=== PATIENT | male | born 1985 | race Caucasian/White ===

== ENCOUNTER 2019-08-07 23:53 | Emergency (ER) | payer BC, OTHER ==
--- NOTE | 2019-08-08 00:49 | EDM.PDOC ---
ED HPI GENERAL MEDICAL PROBLEM - General Chief Complaint: ENT Problem Stated Complaint: SORE THROAT Time Seen by Provider: 08/08/19 00:44 Source of Information: Reports: Patient History Limitations: Reports: No Limitations - History of Present Illness INITIAL COMMENTS - FREE TEXT/NARRATIVE: 33-year-old male presents the emergency room with chief complaint of sore throat for the past 2 days. Patient's family presents the emergency room all having sore throats. Patient is convinced he has strep Onset: Today Duration: Hour(s):, Getting Worse Location: Reports: Other (throat) Quality: Reports: Ache Severity: Mild Improves with: Reports: None Worsens with: Reports: None Associated Symptoms: Reports: No Other Symptoms throat Pain Score (Numeric/FACES): 3 - Related Data Allergies Allergy/AdvReac Type Severity Reaction Status Date / Time No Known Allergies Allergy Verified 08/08/19 00:21 Home Meds: Home Meds Insulin Glarg,Human.Rec.Analog [Lantus] 10 units SQ DAILY 08/08/19 [History] metFORMIN HCl [Metformin HCl] 1,000 mg PO BID 08/08/19 [History] Past Medical History Endocrine/Metabolic History: Reports: Diabetes, Type II, Obesity/BMI 30+ Social & Family History - Family History Family Medical History: Noncontributory - Tobacco Use Smoking Status *Q: Never Smoker - Recreational Drug Use Recreational Drug Use: No ED ROS ENT - Review of Systems Review Of Systems: See Below Constitutional: Reports: Fever HEENT: Reports: Throat Pain Respiratory: Reports: No Symptoms Cardiovascular: Reports: No Symptoms Endocrine: Reports: No Symptoms GI/Abdominal: Reports: No Symptoms : Reports: No Symptoms Musculoskeletal: Reports: No Symptoms Skin: Reports: No Symptoms Neurological: Reports: No Symptoms Psychiatric: Reports: No Symptoms Hematologic/Lymphatic: Reports: No Symptoms Immunologic: Reports: No Symptoms ED EXAM, ENT - Physical Exam Exam: See Below Text/Narrative:: Exam patient is awake alert and oriented. Patient has swelling to the tonsillar cry no evidence of exudates. Patient is not septic Exam Limited By: No Limitations General Appearance: Alert, WD/WN, No Apparent Distress Eye Exam: Bilateral Eye: PERRL, Proptosis Ears: Normal External Exam, Normal Canal, Hearing Grossly Normal, Normal TMs Nose: Normal Inspection, Normal Mucousa Mouth/Throat: Normal Inspection, Normal Gums, Normal Lips, Normal Oropharynx Head: Atraumatic, Normocephalic Neck: Normal Inspection, Supple, Non-Tender Respiratory/Chest: No Respiratory Distress, Lungs Clear, Normal Breath Sounds, No Accessory Muscle Use, Chest Non-Tender Cardiovascular: Normal Peripheral Pulses, Regular Rate, Rhythm, No Edema, No JVD , No Murmur Neurological: Alert, Oriented, CN II-XII Intact Psychiatric: Normal Affect, Normal Mood Skin: Warm, Dry, Intact Lymphatic: No Adenopathy Course - Vital Signs Last Recorded V/S: Last Vital Signs Temp 97 F 08/08/19 00:15 Pulse 85 08/08/19 00:15 Resp 18 08/08/19 00:15 BP 118/73 08/08/19 00:15 Pulse Ox 94 L 08/08/19 00:15 - Orders/Labs/Meds Orders: Active Orders 24 hr Category Date Time Status CULTURE STREP A CONFIRMATION [] Stat Lab 08/08/19 00:20 Results STREP SCRN A RAPID W CULT CONF [RM] Stat Lab 08/08/19 00:20 Results Departure - Departure Time of Disposition: 01:41 Disposition: Home, Self-Care 01 Condition: Good Clinical Impression: Viral syndrome - Discharge Information Instructions: Viral Illness, Adult Referrals: [facility] [Outside] [facility] [Outside] PCP,None [Primary Care Provider] - Forms: ED Department Discharge Care Plan Goals: The following information is given to patients seen in the emergency department who are being discharged to home. This information is to outline your options for follow-up care. We provide all patients seen in our emergency department with a follow-up referral. The need for follow-up, as well as the timing and circumstances, are variable depending upon the specifics of your emergency department visit. If you don't have a primary care physician on staff, we will provide you with a referral. We always advise you to contact your personal physician following an emergency department visit to inform them of the circumstance of the visit and for follow-up with them and/or the need for any referrals to a consulting specialist. The emergency department will also refer you to a specialist when appropriate. This referral assures that you have the opportunity for followup care with a specialist. All of these measure are taken in an effort to provide you with optimal care, which includes your followup. Under all circumstances we always encourage you to contact your private physician who remains a resource for coordinating your care. When calling for followup care, please make the office aware that this follow-up is from your recent emergency room visit. If for any reason you are refused follow-up, please contact the [facility] emergency department at and ask to speak to the emergency department charge nurse. Sepsis Event Note - Evaluation Sepsis Screening Result: No Definite Risk - Focused Exam Vital Signs: Vital Signs Temp Pulse Resp BP Pulse Ox 08/08/19 00:15 97 F 85 18 118/73 94 L Date Exam was Performed: 08/08/19 Time Exam was Performed: 01:40 - My Orders Last 24 Hours: My Active Orders 08/08/19 00:20 CULTURE STREP A CONFIRMATION [RM] Stat STREP SCRN A RAPID W CULT CONF [RM] Stat - Assessment/Plan Last 24 Hours: My Active Orders 08/08/19 00:20 CULTURE STREP A CONFIRMATION [RM] Stat STREP SCRN A RAPID W CULT CONF [RM] Stat
== END 2019-08-08 01:55 | disposition home or self-care (01) ==
LOC: MW.ED 23:53
DX: B34.9 Viral infection, unspecified (principal); E11.9 Type 2 diabetes mellitus without complications; E66.9 Obesity, unspecified; Z79.4 Long term (current) use of insulin; Z68.39 Body mass index [BMI] 39.0-39.9, adult
CPT/HCPCS: 87081; 87804; 87880-QW; 99282; 99283

== ENCOUNTER 2021-06-27 17:23 | Emergency (ER) | payer OTHER ==
[2021-06-27] MEDS ORDERED: Ondansetron 4 MG/2 ML SDV IVPUSH ONE (18:01)
[2021-06-27] MEDS ORDERED: Ketorolac 30 MG/ML SDV IVPUSH ONE (18:01)
[2021-06-27] MEDS ORDERED: Sodium Chloride 0.9% 1,000 ML IV ONE (18:02)
[2021-06-27] MEDS ORDERED: Morphine 4 MG/ML VIAL IVPUSH ONE (18:02)
[2021-06-27] MEDS ORDERED: Sodium Chloride 0.9% 10 ML Syringe FLUSH PRN (18:02)
[2021-06-27] MEDS ORDERED: Sodium Chloride 0.9% 2.5 ML Syringe FLUSH PRN (18:02)
--- NOTE | 2021-06-27 18:04 | EDM.PDOC ---
ED HPI GENERAL MEDICAL PROBLEM - General Chief Complaint: ENT Problem Stated Complaint: TOOTH PAIN Time Seen by Provider: 06/27/21 17:25 Source of Information: Reports: Patient History Limitations: Reports: No Limitations - History of Present Illness INITIAL COMMENTS - FREE TEXT/NARRATIVE: HISTORY AND PHYSICAL: History of present illness: The patient is a 35-year-old male who presents to the emergency department with right lower jaw swelling and pain. The patient states that he saw his dentist on Tuesday and was given a second round of penicillin to stave off an infection. Patient states that he had just gotten off a round of penicillin 2 days prior to that. Patient states that he needs frequent antibiotics to keep the infection at bay. The patient states that today his jaw started swelling and has increased pain. He denies any fever, nausea, and vomiting. He has not been taking anything for the pain. Patient denies any fever, chills, headache, change in vision, syncope or near syncope. Denies any chest pain, back pain, shortness of breath or cough. Denies any abdominal pain, diarrhea, constipation or dysuria. Has not noted any blood in urine or stool. Patient has been eating and drinking appropriately. Review of systems: As per history of present illness and below otherwise all systems reviewed and negative. Past medical history: As per history of present illness and as reviewed below otherwise noncontributory. Surgical history: As per history of present illness and as reviewed below otherwise noncontributory. Social history: See social history for further information Family history: As per history of present illness and as reviewed below otherwise noncontributory. Physical exam: General: Well developed and well nourished. Alert and orientated x 3. Nontoxic in appearance and in no acute distress. Vital signs are stable and have been reviewed by me. Nursing notes were reviewed. HEENT: Atraumatic, normocephalic, pupils equal and reactive bilaterally, negative for conjunctival pallor or scleral icterus, mucous membranes moist, TMs normal bilaterally, throat clear, neck supple, nontender, trachea midline. The gumline around tooth #30 and 31 with swelling and redness. Increased tenderness from tooth #32 tooth #29 at the base of the gums. No obvious abscess noted. No drooling or trismus noted. No meningeal signs. No hot potato voice noted. Lungs: Clear to auscultation bilaterally. No wheezes, rales, or rhonchi. Chest nontender. Normal work of breathing, no accessory muscles used. Heart: S1S2, regular rate and rhythm without overt murmur, gallops, or rubs. No JVD. No peripheral edema Abdomen: Soft, nondistended, nontender. Normoactive bowel sounds. Negative for masses or costovertebral tenderness. Skin: Intact, warm, dry. No lesions or rashes noted. Hematologic: No petechiae or purpra. Mucosa appropriate color and normal nail bed color and refill. Extremities: Atraumatic, moves all extremities per self without difficulty or deficits, negative for cords or calf pain. Neurovascular unremarkable. Neuro: Awake, alert, oriented. Cranial nerves II through XII unremarkable. Cerebellum unremarkable. Motor and sensory unremarkable throughout. Exam nonfocal. Psychiatric: Mood and affect are appropriate. Normal thought process. Answering questions appropriately. Notes: *This patient was seen and evaluated during the 2019 SARS-CoV-2 novel coronavirus pandemic period. Community viral transmission is ongoing at time of this encounter and the emergency department is operating under pandemic response procedures. As stated above the patient is a 35-year-old male who presents with right side lower jaw swelling and pain. He was seen by his dentist on Tuesday and placed on a second round of penicillin. His first round ended 2 days prior. The patient states that he has to have antibiotics frequently to keep his infection at bay. Examination does show swelling from tooth #30 through tooth #29 at the base of the gum lines. At tooth #29 the base feels firmer. Do not see any obvious abscess that I can drain. I have ordered a soft neck CT. I have ordered IV fluids, Toradol, morphine 2 mg, and Zofran for pain control. The patient is agreeable with this plan. Soft neck CT Impression : 1. Asymmetric soft tissue swelling and edema/inflammation in the soft tissues about the right mary mandible. Poorly defined area of low attenuation within this area swelling may represent phlegmon formation. 2. Inflammatory change may be dental in origin and may arise from paravertebral abscess/lucency about right mandibular tooth #29. 3. No inflammation within the lingual soft tissues. 4. Mildly prominent enlarged bilateral level 2 lymph nodes which are likely reactive. No adenopathy elsewhere. 5. No inflammation within the parapharyngeal fat pads are Rich vertebral space. 6. No prevertebral soft tissue swelling. As I do not see an point on the abscesses which I could omid and drain it I will treat the patient with clindamycin 300 mg p.o. 3 times daily for 10 days. The patient required a second dose of morphine at which time his pain was under control. I will treat his pain with Percocet 325/5 mg 1-2 tabs every 4-6 hours as needed for pain. The patient will continue to follow-up with his dentist next week. I instructed the patient that long-term treatment with antibiotics is not an appropriate management of this type of dental infection. The patient needs to have the tooth removed or an root canal done. The patient verbalizes understanding. I have talked with the patient about today's findings, in addition to providing specific details for plan of care. Reassessment at the time of disposition demonstrates that the patient is in no acute distress. The patient is stable for discharge, counseling was provided and we discussed in great detail signs and symptoms that would prompt them to return to the Emergency Department. Medication, follow up and supportive care measures were reviewed and discussed. Voices understanding and is agreeable to plan of care. Denies any further questions or concerns at this time. Diagnostics: CBC CMP, soft neck CT Therapeutics: IV fluids, Zofran, Toradol, morphine Prescription:clindamycin 300 mg by mouth 3 times a day for 10 days, Percocet 325/5mg 1-2 tabs every 4-6 hours as needed for pain Impression: Dental abscess Plan: 1. You were evaluated today on an emergent basis. Your complaints of right lower jaw pain and swelling was evaluated with blood work and a CT. Your blood work was normal. Your CAT scan showed an abscess right at the right mandibular tooth where your swelling is. It does not appear to be an area that I could cut open and drain at this time. I am changing your antibiotic to clindamycin 300 mg by mouth 3 times a day for 10 days. I have sent that prescription to [facility] pharmacy. I have prescribed Percocet 325/5 1-2 tabs every 4-6 hours as needed for pain #32. This is a written paper prescription that was handed to you. You need to follow-up with your dentist for definitive care. If your swelling crosses the midline or you become worse or short of breath please return to the emergency department immediately as you need further care. 2. You can alternate Tylenol and ibuprofen as needed for pain and fever management. 3. We encourage you to follow up with your primary care provider and/or recommended specialist in the next few days for re-evaluation and further care/management. 4. If your symptoms should worsen, new symptoms develop or any of the signs and symptoms we discussed should arise please return to the emergency room or call 911 (if needed). Definitive disposition and diagnosis as appropriate pending reevaluation and review of above. R mouth Pain Score (Numeric/FACES): 10 - Related Data Allergies Allergy/AdvReac Type Severity Reaction Status Date / Time No Known Allergies Allergy Verified 06/27/21 17:44 Home Meds: Home Meds Amoxicillin 500 mg PO Q6H 06/27/21 [History] Clindamycin HCl 300 mg PO TID #30 capsule 06/27/21 [Rx] Past Medical History HEENT History: Reports: None Cardiovascular History: Reports: Hypertension Respiratory History: Reports: None Gastrointestinal History: Reports: None Genitourinary History: Reports: None Musculoskeletal History: Reports: None Neurological History: Reports: None Psychiatric History: Reports: None Endocrine/Metabolic History: Reports: Diabetes, Type II, Obesity/BMI 30+ Hematologic History: Reports: None Immunologic History: Reports: None Oncologic (Cancer) History: Reports: None Dermatologic History: Reports: None - Infectious Disease History Infectious Disease History: Reports: Chicken Pox - Past Surgical History Head Surgeries/Procedures: Reports: None Cardiovascular Surgical History: Reports: None Social & Family History - Family History Family Medical History: No Pertinent Family History - Tobacco Use Tobacco Use Status *Q: Former Tobacco User Used Tobacco, but Quit: Yes Month/Year Tobacco Last Used: 2019 - Caffeine Use Caffeine Use: Reports: Energy Drinks - Recreational Drug Use Recreational Drug Use: No ED ROS ENT - Review of Systems Review Of Systems: Comprehensive ROS is negative, except as noted in HPI. ED EXAM, ENT - Physical Exam Exam: See Below (See dictation) Course - Vital Signs Last Recorded V/S: Last Vital Signs Temp 96.8 F L 06/27/21 17:45 Pulse 72 06/27/21 17:45 Resp 28 H 06/27/21 17:45 BP 163/107 H 06/27/21 17:45 Pulse Ox 98 06/27/21 17:45 - Orders/Labs/Meds Orders: Active Orders 24 hr Category Date Time Status Saline Lock Insert [OM.PC] Stat Oth 06/27/21 18:01 Ordered Meds: Medications Discontinued Medications Generic Name Dose Route Start Last Admin Trade Name Freq PRN Reason Stop Dose Admin Clindamycin HCl 450 mg 06/27/21 20:15 06/27/21 20:18 Clindamycin Hcl 150 Mg Cap PO 450 mg Q6H STEPHANIE Administration Hydromorphone HCl 1 mg 06/27/21 19:14 06/27/21 19:20 Hydromorphone 1 Mg/Ml Syringe IVPUSH 06/27/21 19:15 1 mg ONETIME ONE Administration Sodium Chloride 1,000 mls @ 999 mls/hr 06/27/21 18:02 06/27/21 18:23 Normal Saline IV 06/27/21 19:02 999 mls/hr .BOLUS ONE Administration Iopamidol 75 ml 06/27/21 18:55 06/27/21 18:56 Iopamidol 755 Mg/Ml 500 Ml Multipack Bottle IVPUSH 06/27/21 18:56 75 ml ONETIME ONE Administration Ketorolac Tromethamine 30 mg 06/27/21 18:01 06/27/21 18:24 Ketorolac 30 Mg/Ml Sdv IVPUSH 06/27/21 18:02 30 mg ONETIME ONE Administration Morphine Sulfate 2 mg 06/27/21 18:06 06/27/21 18:18 Morphine 2 Mg/Ml Syringe IM 06/27/21 18:07 Not Given ONETIME ONE Morphine Sulfate 2 mg 06/27/21 18:16 06/27/21 18:24 Morphine 2 Mg/Ml Syringe IVPUSH 06/27/21 18:17 2 mg ONETIME ONE Administration Ondansetron HCl 4 mg 06/27/21 18:01 06/27/21 18:24 Ondansetron 4 Mg/2 Ml Sdv IVPUSH 06/27/21 18:02 4 mg ONETIME ONE Administration Sodium Chloride 10 ml 06/27/21 18:02 06/27/21 18:23 Sodium Chloride 0.9% 10 Ml Syringe FLUSH 10 ml ASDIRECTED PRN Administration Keep Vein Open Sodium Chloride 2.5 ml 06/27/21 18:02 06/27/21 18:22 Sodium Chloride 0.9% 2.5 Ml Syringe FLUSH 2.5 ml ASDIRECTED PRN Administration Keep Vein Open Departure - Departure Time of Disposition: 20:14 Disposition: Home, Self-Care 01 Condition: Good Clinical Impression: Dental abscess - Discharge Information *PRESCRIPTION DRUG MONITORING PROGRAM REVIEWED*: No *COPY OF PRESCRIPTION DRUG MONITORING REPORT IN PATIENT BRAD: No Prescriptions: Clindamycin HCl 300 mg PO TID #30 capsule Instructions: Dental Abscess Referrals: Kirby Cristina [facility] [Primary Care Provider] - Forms: ED Department Discharge Additional Instructions: The following information is given to patients seen in the emergency department who are being discharged to home. This information is to outline your options for follow-up care. We provide all patients seen in our emergency department with a follow-up referral. The need for follow-up, as well as the timing and circumstances, are variable depending upon the specifics of your emergency department visit. If you don't have a primary care physician on staff, we will provide you with a referral. We always advise you to contact your personal physician following an emergency department visit to inform them of the circumstance of the visit and for follow-up with them and/or the need for any referrals to a consulting specialist. The emergency department will also refer you to a specialist when appropriate. This referral assures that you have the opportunity for follow-up care with a specialist. All of these measure are taken in an effort to provide you with optimal care, which includes your follow-up. Under all circumstances we always encourage you to contact your private physician who remains a resource for coordinating your care. When calling for follow-up care, please make the office aware that this follow-up is from your recent emergency room visit. If for any reason you are refused follow-up, please contact the [facility] Emergency Department at and asked to speak to the emergency department charge nurse. [facility] [address] [place] [id number] [facility] [address] [place] [id number] Plan: 1. You were evaluated today on an emergent basis. Your complaints of right lower jaw pain and swelling was evaluated with blood work and a CT. Your blood work was normal. Your CAT scan showed an abscess right at the right mandibular tooth where your swelling is. It does not appear to be an area that I could cut open and drain at this time. I am changing your antibiotic to clindamycin 300 mg by mouth 3 times a day for 10 days. I have sent that prescription to [facility] pharmacy. I have prescribed Percocet 325/5 1-2 tabs every 4-6 hours as needed for pain #32. This is a written paper prescription that was handed to you. You need to follow-up with your dentist for definitive care. If your swelling crosses the midline or you become worse or short of breath please return to the emergency department immediately as you need further care. 2. You can alternate Tylenol and ibuprofen as needed for pain and fever management. 3. We encourage you to follow up with your primary care provider and/or recommended specialist in the next few days for re-evaluation and further care/management. 4. If your symptoms should worsen, new symptoms develop or any of the signs and symptoms we discussed should arise please return to the emergency room or call 911 (if needed). Sepsis Event Note (ED) - Evaluation Sepsis Screening Result: No Definite Risk - My Orders Last 24 Hours: My Active Orders 06/27/21 18:01 Saline Lock Insert [OM.PC] Stat - Assessment/Plan Last 24 Hours: My Active Orders 06/27/21 18:01 Saline Lock Insert [OM.PC] Stat
[2021-06-27] MEDS ORDERED: Morphine 2 MG/ML SYRINGE IM ONE (18:06)
[2021-06-27] MEDS ORDERED: Morphine 2 MG/ML SYRINGE IVPUSH ONE (18:16)
[2021-06-27] MEDS ORDERED: Iopamidol 755 MG/ML 500 ML Multipack Bottle IVPUSH ONE (18:55)
--- NOTE | 2021-06-27 19:11 | CT ---
INDICATION: Swelling of the right jaw. Numbness. COMPARISON: None. TECHNIQUE: CT soft tissue neck with IV contrast IC view [id number] cc. FINDINGS: There is asymmetric soft tissue swelling and edema/inflammation in the soft tissues about the right mary mandible. Poorly defined region of low-attenuation within the soft tissues may represent phlegmon formation. Finding may be dental in origin and may arise from periapical lucency about right mandibular tooth #29 (series 203, image 25; series 202, image 54). Overall, findings may represent appear recall abscess formation with extension into the adjacent buccal soft tissues. No inflammation within the lingual soft tissues of the right mary mandible. No soft tissue swelling or edema and inflammation in the left face. Normal bilateral parotid and submandibular glands. Normal thyroid gland. Mildly prominent and enlarged bilateral level 2 lymph nodes which are likely reactive. No adenopathy elsewhere. No supraclavicular superior mediastinal adenopathy. No inflammation within the parapharyngeal fat pads or retropharyngeal space. Symmetric mild enlargement of the bilateral tonsillar pillars. Bilateral calcified tonsilliths. Normal thickness of the epiglottis. Normal glottis with symmetric vocal cords. Lung apices are clear. Normal alignment of the cervical spine. No prevertebral soft tissue swelling. Visualized paranasal sinuses and mastoid air cells are clear. Impression : 1. Asymmetric soft tissue swelling and edema/inflammation in the soft tissues about the right mary mandible. Poorly defined area of low attenuation within this area swelling may represent phlegmon formation. 2. Inflammatory change may be dental in origin and may arise from paravertebral abscess/lucency about right mandibular tooth #29. 3. No inflammation within the lingual soft tissues. 4. Mildly prominent enlarged bilateral level 2 lymph nodes which are likely reactive. No adenopathy elsewhere. 5. No inflammation within the parapharyngeal fat pads are Rich vertebral space. 6. No prevertebral soft tissue swelling Please note that all CT scans at this facility use dose modulation, iterative reconstruction, and/or weight-based dosing when appropriate to reduce radiation dose to as low as reasonably achievable. Dictated by Pratik Lawson MD @ 06/27/2021 7:10:59 PM (Electronically Signed)
[2021-06-27] MEDS ORDERED: HYDROmorphone 1 MG/ML Syringe IVPUSH ONE (19:14)
[2021-06-27] MEDS ORDERED: Clindamycin HCl 150 MG Cap PO SCH (20:15)
== END 2021-06-27 20:32 | disposition home or self-care (01) ==
LOC: MW.ED 17:23
DX: K04.7 Periapical abscess without sinus (principal); I10 Essential (primary) hypertension; E11.9 Type 2 diabetes mellitus without complications; E66.9 Obesity, unspecified; Z68.41 Body mass index [BMI] 40.0-44.9, adult; Z87.891 Personal history of nicotine dependence
CPT/HCPCS: 70491; 96374; 96375; 99283; A9270; J1170; J1885; J2270; J2405; J7030; Q9967

== ENCOUNTER 2023-01-11 10:26 | Emergency (ER) | payer OTHER, BC ==
[2023-01-11] MEDS ORDERED: Glucagon,Human Recombinant 1 MG Vial IM PRN (10:46)
[2023-01-11] MEDS ORDERED: 50% Dextrose in Water 50 ML Syringe IVPUSH PRN (10:46)
[2023-01-11] MEDS ORDERED: Sodium Chloride 0.9% 1,000 ML IV ONE (10:46)
[2023-01-11] MEDS ORDERED: Insulin Regular, Human 100 Units/ML 10 ML Vial SUBCUT ONE (10:46)
[2023-01-11 11:09] LABS: BASOPHILS PERCENT AUTO 0.3 % (0.0-1.5); EOSINOPHILS ABSOLUTE AUTO 0.1 K/uL (0.0-0.7); EOSINOPHILS PERCENT AUTO 1.5 % (0.0-7.0); HEMATOCRIT 45.8 % (38.0-50.0); HEMOGLOBIN 15.5 g/dL (13.0-17.0); LYMPHOCYTES ABSOLUTE AUTO 2.6 K/uL (0.6-2.4); LYMPHOCYTES PERCENT AUTO 26.8 % (16.0-40.0); MEAN CORPUSCULAR HEMOGLOBIN 28.8 pg (27.0-32.0); MEAN CORPUSCULAR HGB CONC 33.8 g/dL (31.0-37.0); MEAN CORPUSCULAR VOLUME 85.1 fL (80.0-98.0); MONOCYTES ABSOLUTE AUTO 0.6 K/uL (0.0-0.8); MONOCYTES PERCENT AUTO 6.7 % (0.0-15.0); NEUTROPHILS ABSOLUTE AUTO 6.2 K/uL (1.4-5.7); NEUTROPHILS PERCENT AUTO 64.7 % (48.0-80.0); PLATELET COUNT,PLT 287 K/uL (150-400); RED BLOOD CELL COUNT 5.38 M/uL (4.50-5.90); WHITE BLOOD CELL COUNT,WBC 9.62 K/uL (4.0-11.0)
[2023-01-11 11:12] LABS: APPEARANCE,URINE CLEAR; BILIRUBIN,URINE NEGATIVE (NEGATIVE); COLOR,URINE YELLOW; GLUCOSE,URINE >=1000 mg/dL (NEGATIVE); KETONES,URINE NEGATIVE (NEGATIVE); LEUKOCYTE ESTERASE,URINE NEGATIVE (NEGATIVE); NITRITE,URINE NEGATIVE (NEGATIVE); OCCULT BLOOD,URINE NEGATIVE (NEGATIVE); PH,URINE 5.5 (5.0-8.0); PROTEIN,URINE NEGATIVE (NEGATIVE); UROBILINOGEN,URINE 0.2 EU/dL (<2.0)
[2023-01-11 11:48] LABS: A/G RATIO 0.8 (0.9-1.6); ALBUMIN 3.6 g/dL (3.4-5.0); BILIRUBIN TOTAL 0.4 mg/dL (0.2-1.0); CALCIUM 9.6 mg/dL (8.5-10.1); CARBON DIOXIDE,CO2 27.1 mmol/L (21.0-32.0); CREATININE 1.2 mg/dL (0.8-1.3); EST CRCL DRUG DOSING (CG) 77.53 mL/min; MAGNESIUM 1.7 mg/dL (1.8-2.4); POTASSIUM,K 4.4 mmol/L (3.5-5.1); PROTEIN TOTAL,TP 8.2 g/dL (6.4-8.2)
== END 2023-01-11 12:53 | disposition home or self-care (01) ==
LOC: MW.ED 10:26
DX: E11.65 Type 2 diabetes mellitus with hyperglycemia (principal); I10 Essential (primary) hypertension; E66.9 Obesity, unspecified; Z68.39 Body mass index [BMI] 39.0-39.9, adult; Z79.4 Long term (current) use of insulin; Z91.199 Patient's noncompliance with other medical treatment and regimen due to unspecified reason
CPT/HCPCS: 36415; 80053; 81003; 82009; 82947; 83735; 85025; 96360; 99283; J1815; J7030